=== PATIENT | female | born 1975 | race Caucasian/White ===

== ENCOUNTER 2018-09-18 09:17 | Emergency (ER) | payer OTHER ==
[2018-09-18] MEDS ORDERED: Sodium Chloride 0.9% 10 ML Syringe FLUSH PRN (09:34)
[2018-09-18] MEDS: Sodium Chloride 0.9% 1,000 ML IV ONE (09:48)
[2018-09-18] MEDS: Ondansetron 4 MG/2 ML SDV IVPUSH ONE (09:50)
[2018-09-18] MEDS: HYDROmorphone 1 MG/ML Syringe IVPUSH ONE ×2 (09:52→11:28)
[2018-09-18 10:17] LABS: CHLORIDE,CL 104 mmol/L (98-107); SODIUM,NA 141 mmol/L (136-145)
[2018-09-18] MEDS ORDERED: Iopamidol 612 MG/ML 100 ML Bottle IVPUSH ONE (10:46)
--- NOTE | 2018-09-18 10:55 | EDM.PDOC ---
ED HPI GENERAL MEDICAL PROBLEM - General Chief Complaint: Abdominal Pain Stated Complaint: LEFT SIDED ABDOMINAL PAIN Time Seen by Provider: 09/18/18 09:25 Source of Information: Reports: Patient History Limitations: Reports: No Limitations - History of Present Illness INITIAL COMMENTS - FREE TEXT/NARRATIVE: Pt. presents to ER with acute onset LLQ abdominal pain. Pt. states that the discomfort woke her from her sleep this AM. Pt. states that she has a history of pain in the area from time to time but states that it was much more severe today. Pt. has not been checking her temp but states she feels chilled. She states that her BM this AM was a bit loose. She denies any bartolome diarrhea. States that she is nauseated. She denies any bloody stools. No hematuria, dysuria, frequency , or urgency. Pt. is post menopausal. She is not lightheaded. No chest pain or shortness of breath. Onset: Today Onset Date: 09/18/18 Location: Reports: Abdomen Quality: Reports: Sharp Severity: Severe Left Lower Abdomen Pain Score (Numeric/FACES): 10 - Related Data Allergies Allergy/AdvReac Type Severity Reaction Status Date / Time Cephalosporins Allergy Other Verified 09/18/18 09:41 Home Meds: Home Meds . [No Known Home Meds] 09/18/18 [History] Past Medical History Respiratory History: Reports: Asthma ED ROS GENERAL - Review of Systems Review Of Systems: See Below Constitutional: Reports: Chills HEENT: Reports: No Symptoms Respiratory: Reports: No Symptoms Cardiovascular: Reports: No Symptoms Endocrine: Reports: No Symptoms GI/Abdominal: Reports: Abdominal Pain, Nausea : Reports: No Symptoms Musculoskeletal: Reports: No Symptoms Skin: Reports: No Symptoms Neurological: Reports: No Symptoms Psychiatric: Reports: No Symptoms Hematologic/Lymphatic: Reports: No Symptoms Immunologic: Reports: No Symptoms ED EXAM, GENERAL - Physical Exam Exam: See Below Exam Limited By: No Limitations General Appearance: Alert, WD/WN, No Apparent Distress Nose: Normal Inspection, Normal Mucosa, No Blood Throat/Mouth: Normal Inspection, Normal Lips, Normal Teeth, Normal Gums, Normal Oropharynx, Normal Voice Head: Atraumatic, Normocephalic Neck: Normal Inspection, Supple, Non-Tender, Full Range of Motion Respiratory/Chest: No Respiratory Distress, Lungs Clear, Normal Breath Sounds, No Accessory Muscle Use, Chest Non-Tender GI/Abdominal: Soft, No Organomegaly, No Distention, Guarding, Tender, Other ( tender to L lower quadrant. No rebound.). No: Rebound, Mass, Hepatomegaly, Splenomegaly (Female) Exam: Deferred Rectal (Female) Exam: Deferred Back Exam: Normal Inspection, Full Range of Motion Extremities: Normal Inspection Neurological: Alert, Oriented, CN II-XII Intact, Normal Cognition, Normal Gait, Normal Reflexes, No Motor/Sensory Deficits Psychiatric: Normal Affect, Normal Mood Skin Exam: Warm, Dry, Intact, No Rash, Pallor Lymphatic: No Adenopathy Course - Vital Signs Last Recorded V/S: Last Vital Signs Temp 36.7 C 09/18/18 12:00 Pulse 67 09/18/18 12:00 Resp 12 09/18/18 12:00 BP 124/68 09/18/18 12:00 Pulse Ox 97 09/18/18 12:00 - Orders/Labs/Meds Orders: Active Orders 24 hr Category Date Time Status Sodium Chloride 0.9% [Saline Flush] Med 09/18/18 09:34 Active 10 ml FLUSH ASDIRECTED PRN Peripheral IV Insertion Adult [OM.PC] Routine Oth 09/18/18 09:34 Ordered Medication Orders Sodium Chloride (Saline Flush) 10 ml FLUSH ASDIRECTED PRN PRN Reason: Keep Vein Open Labs: Laboratory Tests 09/18/18 09/18/18 09/18/18 Range/Units 09:45 09:45 09:45 WBC 7.7 (4.0-10.0) x10^3/uL RBC 4.45 (4.00-5.50) x10^6/uL Hgb 14.3 (12.0-16.0) g/dL Hct 42.0 (33.0-47.0) % MCV 94.4 H (78.0-93.0) fL MCH 32.1 H (26.0-32.0) pg MCHC 34.0 (32.0-36.0) g/dL RDW Coeff of Ava 11.8 (10.0-15.0) % Plt Count 217 (130-400) x10^3/uL Neut % (Auto) 77.8 (50.0-80.0) % Lymph % (Auto) 13.2 L (25.0-50.0) % [place] % (Auto) 7.9 (2.0-11.0) % Eos % (Auto) 0.8 (0.0-4.0) % Baso % (Auto) 0.3 (0.2-1.2) % PT 10.4 (10.0-12.8) SEC INR 0.9 L (2.0-3.5) Sodium 141 (136-145) mmol/L Potassium 4.0 (3.5-5.1) mmol/L Chloride 104 (98-107) mmol/L Carbon Dioxide 26 (21-32) mmol/L Anion Gap 15.0 (10-20) mmol/L BUN 18 (7-18) mg/dL Creatinine 1.0 (0.55-1.02) mg/dL Est Cr Clr Drug Dosing TNP Estimated GFR (MDRD) > 60 Glucose 101 (74-106) mg/dL Lactic Acid (0.4-2.0) mmol/L Calcium 8.8 (8.5-10.1) mg/dL Corrected Calcium 8.48 L (8.5-10.1) mg/dL Phosphorus 2.2 L (2.6-4.7) mg/dL Magnesium 1.8 (1.8-2.4) mg/dL Total Bilirubin 0.9 (0.2-1.0) mg/dL AST 18 (15-37) U/L ALT 21 (14-59) U/L Alkaline Phosphatase 53 (46-116) U/L C-Reactive Protein 0.3 (<=0.9) mg/dL Total Protein 8.0 (6.4-8.2) g/dL Albumin 4.4 (3.4-5.0) g/dL Globulin 3.6 Albumin/Globulin Ratio 1.22 Urine Color (YELLOW) Urine Appearance (CLEAR) Urine pH (5.0-8.0) Ur Specific [place] Urine Protein (NEGATIVE) mg/dL Urine Glucose (UA) (NEGATIVE) mg/dL Urine Ketones (NEGATIVE) mg/dL Urine Occult Blood (NEGATIVE) Urine Nitrite (NEGATIVE) Urine Bilirubin (NEGATIVE) Urine Urobilinogen (0.2) EU/dL Ur Leukocyte Esterase (NEGATIVE) Urine RBC (NOT SEEN) /HPF Urine WBC (NOT SEEN) /HPF Ur Squamous Epith Cells (NEGATIVE) /HPF Urine Mucus (NEGATIVE) /LPF POC Urine HCG, Qual (NEGATIVE) 09/18/18 09/18/18 09/18/18 Range/Units 09:45 09:50 09:50 WBC (4.0-10.0) x10^3/uL RBC (4.00-5.50) x10^6/uL Hgb (12.0-16.0) g/dL Hct (33.0-47.0) % MCV (78.0-93.0) fL MCH (26.0-32.0) pg MCHC (32.0-36.0) g/dL RDW Coeff of Ava (10.0-15.0) % Plt Count (130-400) x10^3/uL Neut % (Auto) (50.0-80.0) % Lymph % (Auto) (25.0-50.0) % [place] % (Auto) (2.0-11.0) % Eos % (Auto) (0.0-4.0) % Baso % (Auto) (0.2-1.2) % PT (10.0-12.8) SEC INR (2.0-3.5) Sodium (136-145) mmol/L Potassium (3.5-5.1) mmol/L Chloride (98-107) mmol/L Carbon Dioxide (21-32) mmol/L Anion Gap (10-20) mmol/L BUN (7-18) mg/dL Creatinine (0.55-1.02) mg/dL Est Cr Clr Drug Dosing Estimated GFR (MDRD) Glucose (74-106) mg/dL Lactic Acid 0.9 (0.4-2.0) mmol/L Calcium (8.5-10.1) mg/dL Corrected Calcium (8.5-10.1) mg/dL Phosphorus (2.6-4.7) mg/dL Magnesium (1.8-2.4) mg/dL Total Bilirubin (0.2-1.0) mg/dL AST (15-37) U/L ALT (14-59) U/L Alkaline Phosphatase (46-116) U/L C-Reactive Protein (<=0.9) mg/dL Total Protein (6.4-8.2) g/dL Albumin (3.4-5.0) g/dL Globulin Albumin/Globulin Ratio Urine Color Yellow (YELLOW) Urine Appearance Slightly cloudy H (CLEAR) Urine pH 7.0 (5.0-8.0) Ur Specific [place] 1.015 Urine Protein 30 H (NEGATIVE) mg/dL Urine Glucose (UA) Negative (NEGATIVE) mg/dL Urine Ketones Negative (NEGATIVE) mg/dL Urine Occult Blood Negative (NEGATIVE) Urine Nitrite Negative (NEGATIVE) Urine Bilirubin Negative (NEGATIVE) Urine Urobilinogen 0.2 (0.2) EU/dL Ur Leukocyte Esterase Negative (NEGATIVE) Urine RBC 0-5 (NOT SEEN) /HPF Urine WBC 0-5 (NOT SEEN) /HPF Ur Squamous Epith Cells Few H (NEGATIVE) /HPF Urine Mucus Few H (NEGATIVE) /LPF POC Urine HCG, Qual Negative (NEGATIVE) Meds: Medications Generic Name Dose Route Start Last Admin Trade Name Freq PRN Reason Stop Dose Admin Sodium Chloride 10 ml 09/18/18 09:34 Saline Flush FLUSH ASDIRECTED PRN Keep Vein Open Discontinued Medications Generic Name Dose Route Start Last Admin Trade Name Freq PRN Reason Stop Dose Admin Hydromorphone HCl 1 mg 09/18/18 09:36 09/18/18 09:52 Dilaudid IVPUSH 09/18/18 09:37 1 mg ONETIME ONE Administration Hydromorphone HCl 1 mg 09/18/18 11:12 09/18/18 11:28 Dilaudid IVPUSH 09/18/18 11:13 1 mg ONETIME ONE Administration Sodium Chloride 1,000 mls @ 1,000 mls/hr 09/18/18 09:35 09/18/18 09:48 Normal Saline IV 09/18/18 10:34 1,000 mls/hr .BOLUS ONE Administration Iopamidol 100 ml 09/18/18 10:39 09/18/18 11:06 Isovue-300 (61%) IVPUSH 09/18/18 10:40 100 ml ONETIME ONE Administration Iopamidol 100 ml 09/18/18 10:46 Isovue-300 (61%) IVPUSH 09/18/18 10:47 ONETIME ONE Ondansetron HCl 4 mg 09/18/18 09:35 09/18/18 09:50 Zofran IVPUSH 09/18/18 09:36 4 mg ONETIME ONE Administration - Radiology Interpretation Free Text/Narrative:: CT abdomen and pelvis negative for acute pathology - Re-Assessments/Exams Free Text/Narrative Re-Assessment/Exam: IV access established. She was given 1 L NS, 4 mg zofran, and dilaudid with adequate pain control Departure - Departure Time of Disposition: 12:00 Disposition: Home, Self-Care 01 Clinical Impression: Abdominal pain, Colitis - Discharge Information Instructions: Acetaminophen; Hydrocodone tablets or capsules, Abdominal Pain, Adult, [id number] Referrals: PCP,Not In Area [Primary Care Provider] - Forms: ED Department Discharge Additional Instructions: Colp 10/325mg 1 tab every 4-6 hours as needed for pain Call or return to ER if you have any fever, chills, or increase in discomfort. Follow-up in clinic in 10-[address] scan is negative at this point, but if you are continuing to have discomfort, you may need further workup ( colonoscopy, laparotomy) to determine the cause. - My Orders Last 24 Hours: My Active Orders 09/18/18 09:34 Sodium Chloride 0.9% [Saline Flush] 10 ml FLUSH ASDIRECTED PRN Peripheral IV Insertion Adult [OM.PC] Routine - Assessment/Plan Last 24 Hours: My Active Orders 09/18/18 09:34 Sodium Chloride 0.9% [Saline Flush] 10 ml FLUSH ASDIRECTED PRN Peripheral IV Insertion Adult [OM.PC] Routine Plan: Colp 10/325mg 1 tab every 4-6 hours as needed for pain Call or return to ER if you have any fever, chills, or increase in discomfort. Follow-up in clinic in 10-[address] scan is negative at this point, but if you are continuing to have discomfort, you may need further workup ( colonoscopy, laparotomy) to determine the cause.
[2018-09-18] MEDS: Iopamidol 612 MG/ML 100 ML Bottle IVPUSH ONE (11:06)
--- NOTE | 2018-09-18 11:54 | CT ---
[id number] CT/CT Abdomen Pelvis W IV EXAM: CT Abdomen Pelvis W IV CLINICAL DATA: HISTORY OF LEFT LOWER QUADRANT ABDOMINAL PAIN, SEVERE COMPARISON STUDY: None. FINDINGS: Lung bases are clear. Liver, spleen, gallbladder, pancreas, adrenal glands, and kidneys are unremarkable. Few scattered colonic diverticula. No evidence of acute diverticulitis. No colitis. No small bowel obstruction or inflammation. Appendix is normal. Uterus demonstrates numerous cystic structures in the myometrium, centered within the junctional zone. Findings are nonspecific but can be seen with adenomyomatosis. Adnexal regions demonstrate a 34 x 32 x 33 mm simple appearing cystic mass, most certainly a benign functional cyst. No lymphadenopathy in the abdomen or pelvis. Mild to moderate changes of spondylosis throughout the thoracolumbar spine, most prominent at L5-S1. IMPRESSION: No acute findings in the abdomen or pelvis. Few scattered colonic diverticula without evidence of acute diverticulitis. Abnormal appearance of the uterus, nonspecific but suggesting underlying adenomyomatosis. Fred Guillermo MD 09/18/18 1154 Thank you for allowing us to participate in the care of your patient.
== END 2018-09-18 12:15 | disposition home or self-care (01) ==
LOC: VM.ED 09:17
DX: K52.9 Noninfective gastroenteritis and colitis, unspecified (principal); Z88.1 Allergy status to other antibiotic agents
CPT/HCPCS: 36415; 74177; 80053; 81001; 81025; 83605; 83735; 84100; 85025; 85610; 86140; 96361; 96374; 96375; 96376; 99284-25; J1170; J2405; J7030; Q9967

== ENCOUNTER 2018-10-15 10:18 | Day surgery (SDC) | payer OTHER ==
[~2018-10-15 10:18] MED LIST: Lactated Ringers 1,000 ML IV SCH; Sodium Chloride 0.9% 10 ML Syringe FLUSH PRN
[2018-10-15] MEDS ORDERED: fentaNYL 100 MCG/2 ML SDV ONE (11:45)
[2018-10-15] MEDS ORDERED: Propofol 200 MG/20 ML SDV ONE ×2 (11:45→12:47)
--- NOTE | 2018-10-15 13:50 | OR ---
PREOPERATIVE DIAGNOSES: History of polyps, left lower quadrant abdominal pain, change in bowel pattern. POSTOPERATIVE DIAGNOSES: Minimal diverticulosis, sigmoid region. Tiny polyp at 20 cm, otherwise normal exam. PROCEDURE PROPOSED: Total flexible colonoscopy with multiple random biopsies. PROCEDURE DONE: Total flexible colonoscopy with multiple random biopsies and cold snare biopsy and polypectomy x1. INDICATION: This is a 42-year-old female who comes in with a 2-year history of intermittent left lower quadrant abdominal pain, change in bowel pattern, history of polyps having had 2 previous colonoscopies, last one 4 years ago. She denies any family history of colon polyps or cancer. TECHNIQUE: The patient was brought to the endoscopy suite, placed in left lateral decubitus position. She was sedated per [employer] with propofol. The flexible video colonoscope was then passed transanally and under visualization advanced to the cecum. Examination revealed a normal ascending, transverse, descending colon. The sigmoid colon revealed a very rare occasional diverticular orifice, they were quite small. The patient was also found to have a small polyp at 20 cm removed with 1 bite of the cold biopsy forceps. Multiple random biopsies were taken from all levels of the colon totaling 10 to 12 biopsies and the rectum was normal. The scope was then withdrawn. The patient tolerated procedure well. FINAL IMPRESSION: 1. Minimal sigmoid diverticulosis. 2. Tiny polyp at 20 cm. 3. History of prior polyps. PLAN: The patient will be sent a letter with pathology report. She had multiple random biopsies done and 1 tiny polyp removed. If the colon biopsies do not reveal anything abnormal, she may need to proceed with a CAT scan of the abdomen to further evaluate her abdominal pain if she has not had one. The diverticular disease does not seem to be the cause of her pain, it is too minimal and insignificant. SCM: 10/15/2018 13:05:11 MODL: 10/15/2018 13:19:46 /[id number] cc: April Marin NP
[2018-10-15 13:51] VITALS: BP 109/67
== END 2018-10-15 14:10 | disposition home or self-care (01) ==
LOC: VM.SDS 10:18
PROVIDERS: ATTEND Surgery
DX: K63.5 Polyp of colon (principal); K57.30 Diverticulosis of large intestine without perforation or abscess without bleeding; J45.909 Unspecified asthma, uncomplicated; E55.9 Vitamin D deficiency, unspecified; Z88.1 Allergy status to other antibiotic agents; Z86.010 Personal history of colon polyps; Z79.899 Other long term (current) drug therapy
CPT/HCPCS: J2704; J3010; J7120